=== PATIENT | female | born 1940 | race Caucasian/White ===

== ENCOUNTER → 2016-06-09 | Outpatient (CLI) | payer MEDICARE, BC ==
[~2016-06-09] MED LIST: ACETAMINOPHEN PO; ALPRAZOLAM PO; ALPRAZOLAM0.25 MG PO; ARICEPT5 M1 PO; ARICEPT5 MG PO; ASPIRINEC PO; ATENOLOL PO; BETAPACE PO; CARVEDILOL3.125 MG PO; CARVEDILOL6.25 MG PO; CELEXA PO; CENTRUM SILVER1 EAC2 PO; COREG6.25 MG PO; CORRECTOL5 MG PO; COUMADIN PO; COUMADIN5 MG PO; DULCOLAX5 MG PO; ECOTRIN81 M1 PO; HCTZ PO; HYDROCODONE/APA1 T16 PO; LIPITOR PO; LORTAB 10-3251 EACH PO; SENNA PO; THERA-M CAPLET1 EAC1 PO; VICODIN 5/500 T1 TAB PO; VICODIN PO; VIT B-12 PO; VITAMIN B12-FO1 EACH PO; VITAMIN D 22000 UNIT PO; VITAMIN D 4001 UDTAB PO; VITAMIN D-32000 UNIT PO; VITAMIN D31000 UNI1 PO; WARFARIN SODIU2.5 M1 PO; WELLBUTRIN PO; ZOCOR PO; ZOCOR10 MG PO; ZOLOFT PO; [UNRECOGNIZED DRUG - OTHER]
--- NOTE | ~2016-06-09 | MR134 ---
[facility] A Service of [facility] & [facility] RADIOLOGY TEXT RESULTS PATIENT: JAELYN GONZALEZ LOCATION: [facility] : 38 UNIT #: [id number] AGE: [address]: Jerome Benton II, MD SEX: F ORDER DR: [id number] [facility] [place] [facility]. [place], [place] [address] [id number] O MR#: [id number] Acc #: [id number] NAME: JAELYN GONZALEZ : 1940 SEX: F STUDY DATE/TIME: 06/09/2016 15:27 UNIT: [facility] ROOM: STUDY DESCRIPTION: MR MRA Neck Wo Contrast Attending Physician: Jerome Benton II., M.D. Referring Physician: Jerome Benton II., M.D. Ordering Physician: Jreome Benton II., M.D. Primary Care Physician: Diego Conti M.D. MRI CENTER REPORT This report is preliminary unless electronic signature is present. EXAM Neck MRA no contrast 06/09/2016 PROCEDURE Axial djvh-eg-eaokpz neck MRA with three-dimensional reformats. COMPARISON None CLINICAL HISTORY Recent right hemispheric stroke with worsening dementia and memory loss. FINDINGS Both common and internal and external carotid vertebral arteries are patent. The vertebral arteries appear codominant. The carotid bifurcations appear widely patent with no compelling evidence of plaque and no evidence of any stenosis by NASCET or other criteria. IMPRESSION Normal neck MRA. Dictated by... Melquiades Ji M.D. THIS IS AN ELECTRONICALLY VERIFIED REPORT Melquiades Ji M.D. at 06/15/2016 5:12 PM TEV/walter TD: 06/10/2016 15:08 JOB #: [id number] MRI CENTER REPORT [facility] A Service of [facility] & [facility] RADIOLOGY TEXT RESULTS PATIENT: JAELYN GONZALEZ LOCATION: [facility] : 38 UNIT #: [id number] AGE: [address]: Jerome Benton II, MD SEX: F ORDER DR: COPY
--- NOTE | ~2016-06-09 | MR122 ---
[facility] A Service of [facility] & [facility] RADIOLOGY TEXT RESULTS PATIENT: JAELYN GONZALEZ LOCATION: [facility] : 38 UNIT #: [id number] AGE: [address]: Jerome Benton II, MD SEX: F ORDER DR: [id number] [facility] [address] [facility]. [place], [place] [address] [id number] O MR#: [id number] Acc #: [id number] NAME: JAELYN GONZALEZ : 1940 SEX: F STUDY DATE/TIME: 06/09/2016 15:27 UNIT: [facility] ROOM: STUDY DESCRIPTION: MR MRA Head Wo Contrast Attending Physician: Jerome Benton II., M.D. Referring Physician: Jerome Benton II., M.D. Ordering Physician: Jerome Benton II., M.D. Primary Care Physician: Diego Conti M.D. MRI CENTER REPORT This report is preliminary unless electronic signature is present. EXAM Head MRA, 06/09/2016 PROCEDURE Axial sfdf-kz-[id number] head MRA with three-dimensional reformats. COMPARISON Head MRI same date. Prior head MRA from 2006 and head and neck CT angiogram from 02/09/2016. CLINICAL HISTORY History of stroke and previous aneurysm repair, stroke in February 2016 with worsening dementia and memory loss. FINDINGS There has been left ICA aneurysm coiling in the region of the cavernous sinus and there is a large defect and signal dropout in that region secondarily. Question a new right posterior communicator origin region aneurysm. There is a prominent right posterior communicator but there may be an up to 7.0 mm new aneurysm arising and pointing inferomedially from the right posterior communicator origin region. There is no evidence of recurrent aneurysm in the region of previous coiling that assessment of that region is limited. Both carotid arteries appear patent. The basilar artery appears diminutive, with both posterior cerebral artery territories supplied by posterior communicators. The anterior communicator appears likely patent. There is symmetric appearing intracranial vascularity but no evidence of other aneurysm or flow-limiting stenosis. IMPRESSION 1. 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 [facility] A Service of [facility] & [facility] RADIOLOGY TEXT RESULTS PATIENT: JAELYN GONZALEZ LOCATION: [facility] : 38 UNIT #: [id number] AGE: [address]: Jerome Benton II, MD SEX: F ORDER DR: probably new since prior studies. 2. Anterior dominant circulation with the posterior communicator supplying the posterior cerebral arteries bilaterally and diminutive basilar artery. Otherwise symmetric intracranial vascularity. Dictated by... Melquiades Ji M.D. THIS IS AN ELECTRONICALLY VERIFIED REPORT Melquiades Ji M.D. at 06/15/2016 5:11 PM Markos TD: 06/10/2016 15:15 JOB #: [id number] MRI CENTER REPORT COPY
--- NOTE | ~2016-06-09 | MR17 ---
[facility] A Service of [facility] RADIOLOGY TEXT RESULTS PATIENT: JAELYN GONZALEZ LOCATION: [facility] : 38 UNIT #: [id number] AGE: [address]: Jerome Benton II, MD SEX: F ORDER DR: [id number] [place] [id number] [facility]. [place], [place] [address] [id number] O MR#: [id number] Acc #: [id number] NAME: JAELYN GONZALEZ : 1940 SEX: F STUDY DATE/TIME: 06/09/2016 15:27 UNIT: [facility] ROOM: STUDY DESCRIPTION: MR Brain WWo Contrast Attending Physician: Jerome Benton II., M.D. Referring Physician: Jerome Benton II., M.D. Ordering Physician: Jerome Benton II., M.D. Primary Care Physician: Diego Conti M.D. MRI CENTER REPORT This report is preliminary unless electronic signature is present. EXAM Brain MRI with and without contrast 06/09/2016 PROCEDURE Routine brain MR with and without contrast COMPARISON 02/09/2016 CLINICAL HISTORY Chronically worsening dementia since 2004, recent stroke in February 2016 with subsequent worsened memory loss. COMPARISON Brain MRI February 09, 2016. FINDINGS There is no acute restricted diffusion. There is a small area of cystic encephalomalacia in the region of the acute lesion seen on the prior MRI. This is superimposed on a background of extensive chronic small vessel change. There is advanced volume loss but no hydrocephalus or evidence of acute or chronic hemorrhage. Chronic changes appear otherwise stable when compared to the prior study including left frontal encephalomalacia. Postcontrast images show no mass or abnormal enhancement. Bone marrow signal is normal and the extracranial soft tissues are unremarkable. IMPRESSION Advanced chronic ischemic changes, with expected maturation of the acute lacunar type infarct seen on the prior MRI of February 09, 2016. No new ischemia, hemorrhage, mass, hydrocephalus or other new abnormality is seen. [facility] A Service of [facility] RADIOLOGY TEXT RESULTS PATIENT: JAELYN GONZALEZ LOCATION: [facility] : 38 UNIT #: [id number] AGE: [address]: Jerome Benton II, MD SEX: F ORDER DR: Dictated by... Melquiades Ji M.D. THIS IS AN ELECTRONICALLY VERIFIED REPORT Melquiades Ji M.D. at 06/15/2016 5:12 PM TEV/tmw TD: 06/10/2016 14:46 JOB #: [id number] MRI CENTER REPORT COPY
== END | disposition home or self-care (01) ==
LOC: CMRI 14:48
DX: R51 Headache (principal); Z86.79 Personal history of other diseases of the circulatory system; G93.89 Other specified disorders of brain
CPT/HCPCS: 70544; 70547; 70553; A9577

== ENCOUNTER → 2016-07-09 | Outpatient (CLI) | payer MEDICARE, BC ==
--- NOTE | ~2016-07-09 | CT17 ---
[facility] A Service of [facility] & [facility] RADIOLOGY TEXT RESULTS PATIENT: JAELYN GONZALEZ LOCATION: [facility] : 38 UNIT #: [id number] AGE: [address]: DANNI ENCARNACION APRN SEX: F ORDER DR: [id number] [facility] [address]. [place], [place] [address] [id number] O MR#: [id number] Acc #: [id number] NAME: JAELYN GONZALEZ : 1940 SEX: F STUDY DATE/TIME: 07/09/2016 14:59 UNIT: [facility] ROOM: STUDY DESCRIPTION: CT Angio Head Attending Physician: Danni Encarnacion Aprn Referring Physician: Danni Encarnacion Aprn Ordering Physician: Danni Encarnacion Aprn Primary Care Physician: Diego Conti M.D. MEDICAL IMAGING REPORT This report is preliminary unless electronic signature is present EXAM CT angiogram head. HISTORY Previous aneurysm coiling. Pain under the left eye for the past 10 years. TECHNIQUE Axial imaging was obtained through the head after contrast administration. 80 mL of Isovue was used. This CT exam was performed with one or more of the following radiation dose reduction techniques: automatic exposure control, adjustment of mA and/or kV according to patient size, and iterative reconstruction. FINDINGS There is extensive spray artifact from aneurysm coiling that obscures the smaller intracranial vessels. The major intracranial vessels through the siphons, M1 and A1 segments are patent. This study is essentially nondiagnostic for small aneurysms. IMPRESSION The study is of limited utility because of extensive spray artifact from previous aneurysm coiling. The major M1 and A1 segments are patent. Additional detail is not possible. Dictated by... Efraín Baker M.D. THIS IS AN ELECTRONICALLY VERIFIED REPORT Efraín Baker M.D. at 07/15/2016 4:28 PM ANDREAF/farrah TD: 07/15/2016 12:10 JOB #: [id number] [facility] A Service of [facility] & [facility] RADIOLOGY TEXT RESULTS PATIENT: JAELYN GONZALEZ LOCATION: [facility] : 38 UNIT #: [id number] AGE: [address]: DANNI ENCARNACION APRN SEX: F ORDER DR: MEDICAL IMAGING REPORT Page 1 of 1 COPY
[2016-07-09 16:11] LABS: POC - CREATININE 0.57 mg/dL (0.44-1.03); POC - GFR >60.0 mL/min (>60)
== END | disposition home or self-care (01) ==
LOC: CCAT 13:58
PROVIDERS: Nurse Practitioner Family
DX: I67.1 Cerebral aneurysm, nonruptured (principal)
CPT/HCPCS: 70496; 82565; Q9967

== ENCOUNTER 2016-08-18 11:02 | Emergency (ER) | payer MEDICARE, BC ==
--- NOTE | ~2016-08-18 | CR21 ---
[facility] A Service of [facility] RADIOLOGY TEXT RESULTS PATIENT: JAELYN GONZALEZ LOCATION: [facility] : 38 UNIT #: [id number] AGE: [address]: Arnold Bernard MD SEX: F ORDER DR: [id number] [place] [id number] [facility]. [place], [place] [address] [id number] E MR#: [id number] Acc #: [id number] NAME: JAELYN GONZALEZ : 1940 SEX: F STUDY DATE/TIME: 08/18/2016 11:33 UNIT: [facility] ROOM: STUDY DESCRIPTION: CR Ankle Min 3 Views Rt Attending Physician: Arnold Bernard M.D. Ordering Physician: Arnold Bernard M.D. Primary Care Physician: Diego Conti M.D. MEDICAL IMAGING REPORT This report is preliminary unless electronic signature is present EXAM Right ankle series 08/18/2016 HISTORY 76-year-old female in the ED complaining of right foot and ankle pain after injury. Turned her foot earlier today. TECHNIQUE Three-view right ankle series. FINDINGS There is a nondisplaced acute appearing oblique fracture across the distal fibular metaphysis at the level of the ankle mortise with moderate overlying soft tissue swelling. There may be a subtle nondisplaced transverse fracture across the tip of the medial malleolus, but no other ankle fracture is seen. Extensive subcutaneous soft tissue edema throughout the ankle and lower leg. Note is also made of extensive demineralization of the visualized bony structures of the ankle and foot. Please see foot series reported separately. IMPRESSION 1. Acute oblique fracture of the distal fibular metaphysis. 2. Possible subtle transverse fracture of the medial malleolus, nondisplaced. 3. Soft tissue swelling surrounding the ankle, greatest laterally. 4. Marked demineralization. Dictated by... Nilton Yoder M.D. THIS IS AN ELECTRONICALLY VERIFIED REPORT [facility] A Service of [facility] RADIOLOGY TEXT RESULTS PATIENT: JAELYN GONZALEZ LOCATION: [facility] : 38 UNIT #: [id number] AGE: [address]: Arnold Bernard MD SEX: F ORDER DR: Nilton Yoder M.D. at 08/18/2016 6:48 PM SILVIAW/anisa TD: 08/18/2016 13:01 JOB #: [id number] MEDICAL IMAGING REPORT Page 1 of 1 COPY
--- NOTE | ~2016-08-18 | CR127 ---
[facility] A Service of [facility] RADIOLOGY TEXT RESULTS PATIENT: JAELYN GONZALEZ LOCATION: [facility] : 38 UNIT #: [id number] AGE: [address]: Arnold Bernard MD SEX: F ORDER DR: [id number] [facility] [address]. [place], [place] [address] [id number] E MR#: [id number] Acc #: [id number] NAME: JAELYN GONZALEZ : 1940 SEX: F STUDY DATE/TIME: 08/18/2016 11:34 UNIT: [facility] ROOM: STUDY DESCRIPTION: CR Foot Complete Min 3 View Rt Attending Physician: Arnold Bernard M.D. Ordering Physician: Arnold Bernard M.D. Primary Care Physician: Deigo Conti M.D. MEDICAL IMAGING REPORT This report is preliminary unless electronic signature is present EXAM Right foot series, 08/18/2016. HISTORY 76-year-old female in the ED with right foot and ankle pain after injury. Turned her foot earlier today. TECHNIQUE Three-view right foot series. FINDINGS There is a minimally displaced transverse intraarticular fracture across the base of the fifth metatarsal. No additional acute osseous abnormality is seen within the foot. Old healed fracture deformity of the fifth metacarpal neck is noted. 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 Nondisplaced transverse fracture across the tip of the medial malleolus. Oblique nondisplaced distal fibular fracture. Ankle series reported separately. Significant demineralization of the visualized foot and ankle. IMPRESSION 1. Acute fifth metatarsal base fracture. 2. Old healed fifth metacarpal neck fracture. 3. Osteoarthritis. Marked demineralization. 4. Ankle fractures. Ankle series reported separately. Dictated by... Nilton Yoder M.D. [facility] A Service of [facility] & [facility] RADIOLOGY TEXT RESULTS PATIENT: JAELYN GONZALEZ LOCATION: [facility] : 38 UNIT #: [id number] AGE: [address]: Arnold Bernard MD SEX: F ORDER DR: THIS IS AN ELECTRONICALLY VERIFIED REPORT Nilton Yoder M.D. at 08/18/2016 6:48 PM GEORGES/lilia TD: 08/18/2016 12:57 JOB #: [id number] MEDICAL IMAGING REPORT Page 1 of 1 COPY
[2016-08-18 12:04] LABS: BASOPHIL% 0.3 % (0-2.5); EOSINOPHIL% 0.3 % (0.0-7.0); HEMATOCRIT 38.2 % (35.0-45.0); HEMOGLOBIN 12.3 gm/dL (12.0-16.0); LYMPHOCYTE% 21.8 % (17.0-45.0); MEAN CELL VOLUME 94.8 FL (83-96); MEAN CORPUSCULAR HEMOGLOBIN 30.6 PG (28-34); MEAN CORPUSCULAR HGB CONC 32.3 g/dL (30-36); MEAN PLATELET VOLUME 6.8 FL (6.5-11.5); MONOCYTE# 0.5 X10e3 (0-1.0); MONOCYTE% 5.3 % (3.0-12.0); NEUTROPHIL# 6.5 X10e3 (1.5-7.1); NEUTROPHIL% 72.3 % (40-75); PLATELET COUNT 231 X10e3 (140-420); RED BLOOD COUNT 4.03 X10e (3.90-5.30); RED CELL DISTRIBUTION WIDTH 15.4 % (11.0-15.5)
[2016-08-18 12:06] LABS: DIFF IND NO
[2016-08-18 12:16] LABS: PROTHROMBIN TIME (PATIENT) 21.5 SECONDS (9.6-11.5)
== END 2016-08-18 13:00 | disposition home or self-care (01) ==
LOC: CED 11:02
PROVIDERS: Emergency Medicine
DX: S92.351A Displaced fracture of fifth metatarsal bone, right foot, initial encounter for closed fracture (principal); E78.5 Hyperlipidemia, unspecified; I10 Essential (primary) hypertension; X50.1XXA Overexertion from prolonged static or awkward postures, initial encounter; Y92.009 Unspecified place in unspecified non-institutional (private) residence as the place of occurrence of the external cause
CPT/HCPCS: 29515; 36415; 73610; 73630; 85025; 85610; 85730; 99283

== ENCOUNTER → 2016-12-08 | Outpatient (CLI) | payer MEDICARE, BC ==
--- NOTE | ~2016-12-08 | CT55 ---
[facility] A Service of [facility] & [facility] RADIOLOGY TEXT RESULTS PATIENT: JAELYN GONZALEZ LOCATION: [facility] : 38 UNIT #: [id number] AGE: [address]: Diego Conti MD SEX: F ORDER DR: [id number] [facility] [address]. [place], [place] [address] [id number] O MR#: [id number] Acc #: [id number] NAME: JAELYN GONZALEZ. : 1940 SEX: F STUDY DATE/TIME: 12/08/2016 16:32 UNIT: [facility] ROOM: STUDY DESCRIPTION: CT Chest W Con Attending Physician: Diego Conti M.D. Referring Physician: Diego Conti M.D. Ordering Physician: Diego Conti M.D. Primary Care Physician: Diego Conti M.D. MEDICAL IMAGING REPORT This report is preliminary unless electronic signature is present EXAM CT of the chest with contrast HISTORY Difficulty swallowing for 2 weeks. Abnormal chest radiograph performed at [facility] which showed an abnormal appearance to superior mediastinum which could reflect a dilated esophagus. TECHNIQUE Axial CT images were obtained from the thoracic inlet through the dome of the diaphragm following administration of intravenous contrast material. This CT exam was performed with one or more of the following radiation dose reduction techniques: automatic exposure control, adjustment of mA and/or kV according to patient size, and iterative reconstruction. FINDINGS The lungs appear clear, other than some mild bibasilar atelectasis. This patient's proximal esophagus is dilated and patulous. Similar findings were present on exams dating back to at least February 2016, although I think the degree of dilatation has increased when compared to that study. The mid- and distal thoracic esophagus is normal in caliber and the possibility that there is an underlying stricture or mass lesion is not excluded. Correlation with endoscopy is recommended. The thyroid gland and trachea appear unremarkable. There is no pleural or pericardial effusion. Mediastinal lymph nodes do not appear pathologically enlarged. Images through the upper abdomen demonstrate a cirrhotic morphology to the liver, although I do not see any evidence of portal hypertension and no acute abnormalities are seen within the upper abdomen. Pancreas does appear atrophic. No aggressive osseous abnormalities are seen. There are STS. [facility] A Service of [facility] & [facility] RADIOLOGY TEXT RESULTS PATIENT: JAELYN GONZALEZ LOCATION: [facility] : 38 UNIT #: [id number] AGE: [address]: Diego Conti MD SEX: F ORDER DR: multiple compression deformities at T12, L1 and L2. These have actually been seen on prior studies. IMPRESSION 1. This patient's proximal esophagus is dilated and patulous. The clinical significance is uncertain. It was present on exams dating back to February of 2016 but is more pronounced on today's examination. The mid- and distal esophagus is relatively decompressed. The possibility that this reflects underlying stricture or mass lesion is not excluded. Further evaluation with endoscopy is suggested. 2. Cirrhotic morphology to the liver. No convincing evidence of portal hypertension. 3. Multiple compression deformities involving T12, L1 and L2 which have been seen on prior examinations. Dictated by... April Conti M.D. THIS IS AN ELECTRONICALLY VERIFIED REPORT Apirl Conti M.D. at 12/13/2016 1:10 PM AFF/pcl TD: 12/11/2016 23:00 JOB #: [id number] MEDICAL IMAGING REPORT Page 1 of 1 COPY
== END | disposition home or self-care (01) ==
LOC: CCAT 15:34
DX: K22.2 Esophageal obstruction (principal); K22.8 Other specified diseases of esophagus; M43.9 Deforming dorsopathy, unspecified; K74.60 Unspecified cirrhosis of liver
CPT/HCPCS: 71260; Q9967